=== PATIENT | female | born 1980 | race Caucasian/White ===

== ENCOUNTER 2021-02-11 08:58 | Day surgery (SDC) | payer MEDICAID ==
[~2021-02-11] VITALS: Ht 154.9 cm; Wt 73.7 kg
[2021-02-11] MEDS ORDERED: CHLORHEXIDINE 15 ML UDC PO ONE (09:30)
[2021-02-11] MEDS ORDERED: LACTATED RINGERS 1,000 ML IV SCH (09:30)
[2021-02-11 09:43] VITALS: BP 111/67
[2021-02-11] MEDS ORDERED: METF500T17 PO (09:43)
[2021-02-11] MEDS ORDERED: DOXA8TAB63 PO (09:43)
[2021-02-11] MEDS ORDERED: BUPR-173 PO (09:43)
[2021-02-11] MEDS ORDERED: BUSP15TA PO (09:43)
[2021-02-11] MEDS ORDERED: SUCR1TAB PO (09:43)
[2021-02-11] MEDS ORDERED: CARI3CAP PO (09:43)
[2021-02-11] MEDS ORDERED: CHLORHEXIDINE 15 ML UDC ONE (09:43)
[2021-02-11] MEDS ORDERED: QUET200T7 PO (09:43)
[2021-02-11] MEDS ORDERED: HYDR50TA99 PO (09:43)
[2021-02-11] MEDS ORDERED: SERT100T PO (09:43)
[2021-02-11 10:05] LABS: HCG UR SG 1.022 (1.003-1.030); MICROSCOPIC NOT IND
[2021-02-11 10:29] LABS: ALBUMIN 3.5 g/dL (3.4-5.0); ANION GAP 6 mmol/L (5-15); CALCIUM 8.8 mg/dL (8.5-10.1); CHLORIDE 111 mmol/L (98-107)
[2021-02-11 10:34] LABS: ALANINE AMINOTRANSFERASE 37 U/L (12-78); ALKALINE PHOSPHATASE 83 U/L (45-117); BILIRUBIN,TOTAL 0.2 mg/dL (0.2-1.0); CREATININE 0.76 mg/dL (0.55-1.02); TOTAL PROTEIN 7.1 g/dL (6.4-8.2)
[2021-02-11 10:37] LABS: BASOPHILS % (AUTO) 1 % (0-1); EOSINOPHILS % (AUTO) 2 % (1-7); LYMPHOCYTES % (AUTO) 25 % (22-44); MEAN CORPUSCULAR HEMOGLOBIN 31.2 pg (27.0-34.8); MEAN CORPUSCULAR HGB CONC 34.1 g/dL (32.4-35.8); MONOCYTES % (AUTO) 6 % (2-9); NEUTROPHILS % (AUTO) 66 % (42-75); PLATELET COUNT 211 x10^3/uL (130-400); RED BLOOD COUNT 5.09 x10^6/uL (3.82-5.3)
[2021-02-11] MEDS ORDERED: MIDAZOLAM 1 MG/ML, 2ML ONE (11:20)
[2021-02-11] MEDS ORDERED: FENTANYL PF 250 MCG/5ML ONE (11:20)
[2021-02-11] MEDS ORDERED: hydrALAzine 20 MG/ML, 1ML IV PRN (11:30)
[2021-02-11] MEDS ORDERED: MEPERIDINE/PF 25MG/0.5ML IVPush PRN (11:30)
[2021-02-11] MEDS ORDERED: HALOPERIDOL 5 MG/ML IV PRN (11:30)
[2021-02-11] MEDS ORDERED: DIPHENHYDRAMINE 50 MG/ML, 1ML IVPush PRN (11:30)
[2021-02-11] MEDS ORDERED: ACETAMINOPHEN 325 MG TABLET PO PRN (11:30)
[2021-02-11] MEDS ORDERED: LABETALOL 5MG/ML, 20ML IV PRN (11:30)
[2021-02-11] MEDS ORDERED: OXYcodone 5 MG/5 ML ORAL.SOL UDC PO PRN (11:30)
[2021-02-11] MEDS ORDERED: EPINEPHRINE 1 MG/ML, 1ML ONE (11:38)
[2021-02-11] MEDS ORDERED: BUPIVACAINE 0.25% ONE (11:38)
[2021-02-11] MEDS ORDERED: EPHEDRINE 50 MG/ML, 1ML ONE (12:16)
[2021-02-11] MEDS ORDERED: ROCURONIUM 10MG/ML,5ML ONE (12:43)
[2021-02-11] MEDS ORDERED: CEFAZOLIN 1,000 MG ONE (12:43)
[2021-02-11] MEDS ORDERED: GLYCOPYRROLATE 0.2MG/1ML, 5ML ONE (12:43)
[2021-02-11] MEDS ORDERED: SUCCINYLCHOLINE 20 MG/ML, 10ML ONE (12:43)
[2021-02-11] MEDS ORDERED: NEOSTIGMINE 1 MG/ML, 10ML ONE (12:43)
[2021-02-11] MEDS ORDERED: PROPOFOL 10 MG/ML, 20ML ONE (12:43)
[2021-02-11] MEDS ORDERED: ONDANSETRON 2MG/ML, 2ML ONE (12:43)
[2021-02-11] MEDS ORDERED: DEXAMETHASONE 4 MG/ML, 1ML ONE (12:43)
[2021-02-11] MEDS ORDERED: OXYC1TAB14 PO (12:51)
[2021-02-11] MEDS ORDERED: PROMETHAZINE 25 MG/ML, 1ML ONE (12:54)
[2021-02-11] MEDS ORDERED: IBUP-1222 PO (12:57)
[2021-02-11] MEDS: PROMETHAZINE 25 MG/ML, 1ML IVPush PRN ×2 (13:01→13:30)
[2021-02-11] MEDS ORDERED: FENTANYL PF 100 MCG/2ML ONE (13:02)
[2021-02-11] MEDS: FENTANYL PF 100 MCG/2ML IV PRN ×2 (13:04→13:14)
[2021-02-11] MEDS ORDERED: KETOROLAC 30 MG/1 ML IVPush PRN (13:30)
[2021-02-11] MEDS ORDERED: OXYcodone 5 MG/5 ML ORAL.SOL UDC ONE (13:37)
[2021-02-11] MEDS ORDERED: HYDROmorphone 1 MG/ML, 1ML INJ ONE (13:37)
[2021-02-11] MEDS: HYDROmorphone 1 MG/ML, 1ML INJ IVPush PRN ×2 (13:41→13:57)
[2021-02-11] MEDS ORDERED: HALOPERIDOL 5 MG/ML ONE (13:45)
[2021-02-11] MEDS ORDERED: ACETAMINOPHEN 325 MG TABLET ONE (13:51)
== END 2021-02-11 16:30 | disposition home or self-care (01) ==
LOC: OUT 08:58
PROVIDERS: ATTEND Obstetrics & Gynecology
DX: N83.291 Other ovarian cyst, right side (principal); J45.909 Unspecified asthma, uncomplicated; E11.9 Type 2 diabetes mellitus without complications; F31.9 Bipolar disorder, unspecified; Z79.899 Other long term (current) drug therapy; Z87.891 Personal history of nicotine dependence; Z88.8 Allergy status to other drugs, medicaments and biological substances; Z90.49 Acquired absence of other specified parts of digestive tract; Z98.890 Other specified postprocedural states
CPT/HCPCS: 49322; 80053; 81003; 81025; 82962; 85025; 88112; J0171; J0330; J0690; J1100; J1170; J1630; J2250; J2405; J2550; J2704; J2710; J3010; J7120